=== PATIENT | female | born 1940 | race Caucasian/White ===

== ENCOUNTER 2016-10-08 22:02 | Inpatient (IN) | payer MEDICARE, OTHER ==
--- NOTE | ~2016-10-08 | DS ---
Discharge Summary [facility] [address] [place]. [address] NAME: KARIN ARCEO : 42 STATUS : DIS IN PAT#: [id number] AGE: 75 ADM/REG DATE : 10/08/16 MR#: [id number] REPORT SERV DATE: 10/21/16 DICTATED BY: JABIER CABELLO DATE: 10/20/16 REPORT STATUS : Draft TRANSCRIBED BY: EVIE DATE: 10/20/16 Data Collection from hospitalization DISCHARGE DIAGNOSES: 1. Chest pain. 2. Hypothyroidism. 3. Hypertension. 4. Chronic obstructive pulmonary disease. 5. End-stage renal disease. 6. Atrial fibrillation. 7. Hyperlipidemia. 8. History of left upper extremity AV fistula. 9. Anemia. 10.Past history of Escherichia coli sepsis related to acute cholecystitis. 11.Coronary artery disease. CONSULTATIONS: None. PROCEDURES PERFORMED: Lung ventilation/perfusion scan, 10/09/2016. DISCHARGE MEDICATIONS: Halfprin 81 mg daily, Lipitor 40 mg at bedtime, Tums 2000 mg three times a day, Celexa 10 mg daily, vitamin B12 1000 mcg IM every 30 days, Inspra 25 mg daily, Synthroid 75 mcg before breakfast, Cozaar 100 mg daily, Remeron 15 mg at bedtime, Nitrostat 0.4 mg sublingually as needed, Prilosec 40 mg before breakfast, Zantac 150 mg every evening as needed, Zofran 4 mg every six hours as needed, calcium carbonate 40 mL twice a day, Percocet 5/325 one tablet every four hours as needed. CONDITION AT DISCHARGE: Stable. DISPOSITION: The patient was discharged to [facility] on a renal diet with activities as instructed. HOSPITAL COURSE: This is a 75-year-old female, who dialyzes on Mondays, Wednesdays, and Fridays. She reported to the [facility] with the apparent complaint of chest pain. She was placed as an inpatient in favor of further workup and supportive care. It appears that she underwent an attempted V/Q scan, which was unable to be completed as the patient could not tolerate the entire procedure. She has a history of COPD as well as a cardiac history. She said on the morning of this admission that her chest pain had subsided and that she had no current complaints. She has a left upper extremity fistula with a palpable bruit and thrill. She was admitted to the hospital at this time for further evaluation and treatment. Upon admission, her troponin was 0.08. She had been provided sublingual nitroglycerin in transit and said that she had had no further chest pain since admission. She does have depressed platelets and it was felt that she would need hemodialysis the following day in light of her complaint of chest pain. Initially, we will trend her troponins in three sets and monitor them for escalation. We would plan for her usual hemodialysis the following morning. We would protect the left upper extremity fistula. Repeat echocardiogram was Discharge Summary [place] [id number] [facility] [place]. [address] NAME: KARIN ARCEO : 41 STATUS : DIS IN PAT#: [id number] AGE: 75 ADM/REG DATE : 10/08/16 MR#: [id number] REPORT SERV DATE: 10/21/16 DICTATED BY: JABIER CABELLO DATE: 10/20/16 REPORT STATUS : Draft TRANSCRIBED BY: EVIE DATE: 10/20/16 requested. It was felt that this may be an exacerbation of her COPD more so than active cardiac difficulty. DuoNeb were going to be given as needed and we would titrate her O2 maintaining saturations at 90% or greater as needed. The following day, lungs inhalation/perfusion scan had shown matched left lower lobe defect. There was some atelectasis in the left base on chest x-ray in this location. Other defects could not be compared because the patient could not tolerate completion of the ventilation study. The study was indeterminate for pulmonary embolus because the ventilation procedure could not be completed. On 10/10/2016, hemodialysis therapy was performed. She had no further chest pain. Troponins were negative. Her lungs were clear. There were no significant findings on the echocardiogram. She was evaluated by Physical Therapy. On 10/11/2016, discharge instructions were given. Due to her improved and stable condition, she was discharged to [facility] with the above-stated instructions. Information collected by: Julia Fernandes I submit the above information as my discharge summary. TITI/EVIE Jabier Cabello M.D. / [id number] CC: Honey Ravi M.D. Formerly [facility]
--- NOTE | ~2016-10-08 | HP ---
History And Physical [address] [id number] [place]. [address] NAME: KARIN ARCEO : 42 STATUS : ADM IN [facility]#: [id number] AGE: 75 ADM/REG DATE : 10/08/16 MR#: [id number] REPORT SERV DATE: 10/09/16 DICTATED BY: MANDEEP LEE DATE: 10/09/16 REPORT STATUS : Draft TRANSCRIBED BY: MODL DATE: 10/09/16 DATE OF ADMISSION: 10/08/2016 REASON FOR ADMISSION: End-stage renal disease, complaining of chest pain. HISTORY OF PRESENT ILLNESS: Very pleasant 75-year-old female patient who dialyzes Monday, Monday, and Monday in [place]. She reports to [facility] overnight with an apparent complaint of chest pain. She was placed inpatient in favor of further workup and supportive care. It appears that she underwent an attempted V/Q scan which was unable to be completed as the patient could not tolerate the entire procedure. She is known to have a cardiac history as well as history of COPD and states this morning that her chest pain has subsided and she has no current complaints. She is lying in bed this morning, is easily arousable, awake, alert, and oriented x3. She does have a left upper extremity fistula with a palpable bruit and thrill and is in no acute distress. PAST MEDICAL HISTORY: Positive for end-stage renal disease, Monday, Monday, and Monday dialysis at [place], via left upper extremity fistula. Remainder of her history is positive for paroxysmal atrial fibrillation with no chronic anticoagulation, history of falls, hypertension, coronary artery disease, status post stents, ejection fraction last known around 45%, hyperlipidemia, history of thyroid resection with parathyroidectomy in 11/2014, pelvic fracture with fall in 01/2015, hypothyroidism, anemia, cholelithiasis with gallstone and common bile duct removal by ERCP on 04/23/2015, E coli sepsis related to acute cholecystitis, treated with Rocephin, laparoscopic cholecystectomy in 04/[address] Valverde, coronary artery disease with history of PCI to RCA and LAD in 2000, and anemia. REVIEW OF SYSTEMS: Completed. Please see HPI for pertinent details. SOCIAL HISTORY: The patient states that she lives here locally with her family, particularly, her mother and daughter. Denies EtOH or illicit drugs. No tobacco. No chronic use of anticoagulation as above secondary to falls. ALLERGIES: SHE LISTS ALLERGIES TO LISINOPRIL. ACTIVE HOME MEDICATIONS: Include ASA 81 mg daily, Lipitor 40 mg p.o. at bedtime, Tums 2000 mg p.o. t.i.d., Celexa 10 mg p.o. daily, vitamin B12 at 1000 mcg q.3 days, Inspra 25 mg daily, Levaquin 500 mg p.o. q.48 h., started on 09/28/2016 for 10 days, which should have completed yesterday, Synthroid 75 mcg p.o. daily, Cozaar 100 mg daily, Remeron 15 mg p.o. at bedtime, Nitrostat sublingual 0.4 p.r.n., Prilosec 40 mg p.o. daily, Zofran 4 mg p.o. q.6 hours p.r.n., oxycodone 5/325 one q.4 hours p.r.n., Zantac 150 mg p.o. daily, calcium carbonate 40 mL p.o. b.i.d., phosphate neutra one packet b.i.d. PHYSICAL EXAMINATION: VITAL SIGNS: Blood pressure at 166/53, temperature 98.0, respiratory rate 18, and heart rate is 63 beats per minute and regular. GENERAL: She is a frail-appearing 75-year-old female patient who is awake and History And Physical [address] [address] NAME: KARIN ARCEO : 42 STATUS : ADM IN [facility]#: [id number] AGE: 75 ADM/REG DATE : 10/08/16 MR#: [id number] REPORT SERV DATE: 10/09/16 DICTATED BY: MANDEEP LEE DATE: 10/09/16 REPORT STATUS : Draft TRANSCRIBED BY: EVIE DATE: 10/09/16 alert in bed during evaluation. She is somewhat somnolent, but is arousable and interacts with conversation. HEENT: Normocephalic and atraumatic. Normal ocular movements. No scleral icterus. No conjunctival pallor is appreciated. NECK: Supple. No thyromegaly. No JVD or mass. CHEST: Shows positive S1 and S2. No rubs or gallops. LUNGS: Diminished throughout without rhonchi or wheezes to auscultation. GI: Shows positive bowel sounds in all four quadrants. No appreciable masses or tenderness. : Examination is deferred. EXTREMITIES: Show positive pulses. No clubbing or cyanosis is noted. She does have a left upper extremity brachiocephalic fistula which is in place and has a palpable bruit and thrill. NEUROLOGIC: Appears to be grossly intact. Nonfocal. SKIN: Warm, dry, and intact to visualized surfaces. No rash, lesions, or ecchymosis. PSYCHIATRIC: She appears to be of appropriate mood and affect. LABORATORY DATA: Pertinent laboratories and imaging to this evaluation are as follows: Portable chest x-ray, cardiomegaly with calcified aorta with low lung volumes, focal atelectasis or infiltrate at the left base, and pleural spaces remain clear. V/Q scan was unable to be completed as the patient could not completely participate. Sodium 139, potassium 3.3, chloride 99, CO2 of 33, BUN 31, creatinine 5.02, reflected GFR of 8 mL/minute, glucose of 74, calcium 7.2, phosphorus 2.9, albumin 1.9. CPK 22, CK-MB 1.1, troponin 0.08. B-natriuretic peptide 719.3. Most recent CBC, white blood cell count 5.5, hemoglobin 10.1, hematocrit 32.3, and platelets at 125. IMPRESSION AND PLAN: This is an end-stage renal disease, Monday, Monday, Monday, patient at [facility] in [place] via left upper extremity fistula, now reporting to [facility] with a complaint of chest pain which has now apparently resolved. She was provided in transit sublingual nitroglycerin and states that she has had no further chest pain since admission. She does, however, have depressed platelets and will need hemodialysis tomorrow in light of her complaint of chest pain. Initially, we will trend her troponins three sets q.8 h. and monitor them for escalation. We will plan her usual hemodialysis in the morning. Protect her left upper extremity fistula since she has not had an echocardiogram since, by record here, 2014. We will repeat her echocardiogram tomorrow, ask Physical Therapy to evaluate the patient to see if she may need some assistance of home health or rehabilitation. As of now, this patient will be an observation admit as this appears it may likely be an exacerbation of her COPD, more so than active cardiac difficulty. Also DuoNeb q.6 h. p.r.n. and titrate her O2 maintaining sats at 90% or greater as needed. Further modification of treatment plan may be made based on clinical presentation of the patient, laboratory results, and further consultation with Renal attending. DICTATED BY: Martell Casey NP JR/EVIE History And Physical [address] [place]. [address] NAME: KARIN ARCEO : 42 STATUS : ADM IN PAT#: [id number] AGE: 75 ADM/REG DATE : 10/08/16 MR#: [id number] REPORT SERV DATE: 10/09/16 DICTATED BY: MANDEEP LEE DATE: 10/09/16 REPORT STATUS : Draft TRANSCRIBED BY: EVIE DATE: 10/09/16 Mandeep Lee M.D. / [id number] CC: Honey Ravi M.D.
[~2016-10-08 22:02] MED LIST: ACETSUP650 PR; ASAB PO; B121000P IM; BISR PR; CALCIUM CARBONATE PO; CELEXA10 PO; COZAAR100 MG PO; DIOV160 PO; DIOV80 PO; FLORINEF0.1 MG PO; HALF81 PO; INSPRA25 PO; L40 PO; LEVAQUIN5T PO; LEVOTHYROXIN75 MCG PO; LIPITOR40 PO; MOMUD PO; NEXIUM40 PO; NITROSTAT0.4 MG SL; NORV25 PO; PCET PO; PLAVIX PO; PNEUMOVAX 23 IM; PRIN10 PO; PROTONIX PO; RENVELA2.4 GM PO; RENVELA800 MG PO; ROCALTROL0.5 MCG PO; SB325 PO; SEVE800T PO; SODBICAR10 PO; T PO; TIAZA4 PO; TUMS E-X750 M2 PO; TYLENOL ARTH650 MG PO; ZOFRAN2ML IM; ZOFRAN2ML IV
[2016-10-08] MEDS ORDERED: SYN075 PO (22:03)
[2016-10-08] MEDS ORDERED: REM15 PO (22:03)
[2016-10-08] MEDS ORDERED: COZAAR100 MG PO (22:03)
[2016-10-08] MEDS ORDERED: PRILOSEC40 MG PO (22:04)
[2016-10-08] MEDS ORDERED: POTASSIUM PHOSPHATE PO (22:05)
[2016-10-08] MEDS ORDERED: TUMSROLL PO (22:05)
[2016-10-08] MEDS ORDERED: SODIUM PHOSPHATE PO (22:05)
[2016-10-08] MEDS ORDERED: NITROSTAT0.4 MG SL (22:06)
[2016-10-08] MEDS ORDERED: ZOFRAN ODT4 MG PO (22:06)
[2016-10-08] MEDS ORDERED: ZANTAC 150 PO (22:07)
[2016-10-08] MEDS ORDERED: PCET PO (22:07)
[2016-10-08 22:44] LABS: BASOPHILS 0.2 %; BASOPHILS ABSOLUTE 0.01 10/3/uL (0.0-0.16); EOSINOPHILS 0.9 %; EOSINOPHILS ABSOLUTE 0.05 10/3/uL (0.0-0.53); ER CBC TAT 0 Hrs 05 Mins; HEMATOCRIT 32.3 % (36.0-48.0); HEMOGLOBIN 10.1 g/dL (12.0-16.0); IMMATURE GRANULOCYTES 0.9 %; IMMATURE GRANULOCYTES ABSOLUTE 0.05 10/3/uL (0.0-0.11); LYMPHOCYTES ABSOLUTE 0.93 10/3/uL (0.67-4.30); MEAN CORPUS HGB CONC 31.3 g/dL (32.0-36.0); MEAN CORPUSCULAR VOLUME 99.1 fL (80-100); MONOCYTES ABSOLUTE 0.33 10/3/uL (0.21-1.20); NEUTROPHILS ABSOLUTE 4.09 10/3/uL (2.02-8.40); RBC DISTRIBUTION WIDTH 14.2 % (12.0-16.0); RED CELL COUNT 3.26 10/6/uL (4.0-5.6); WHITE BLOOD CELLS 5.5 10/3/uL (4.5-10.5)
[2016-10-08 22:48] LABS: PLATELET COUNT 125 10/3/uL (150-400)
[2016-10-08 22:49] LABS: MANUAL DIFF NO %
[2016-10-08 22:54] LABS: INTERNATIONAL NORMAL RATI 1.1 UNITS (-); PARTIAL THROMBO TIME 31.4 SEC (22.5-37.2); PROTIME (NOT ORD) 14.4 SEC (12.0-14.5)
[2016-10-08 22:56] LABS: D-DIMER QUANTITATIVE 1.42 ug/mLFEU (< 0.50)
[2016-10-08 23:01] LABS: BUN (BLOOD UREA NITROGEN) 26 MG/DL (6-23); CALCIUM, SERUM 7.1 MG/DL (8.5-10.4); CHLORIDE, SERUM 97 MMOL/L (96-112); CO2 (CARBON DIOXIDE) 35 MMOL/L (24-34); GFR AFRICAN AMERICAN 10 ML/MIN (>=60); GFR NON AFRICAN AMERICAN 9 ML/MIN (>=60); GLUCOSE, SERUM 81 MG/DL (60-99); POTASSIUM, SERUM 3.9 MMOL/L (3.5-5.3); SODIUM, SERUM 136 MMOL/L (135-148)
[2016-10-08 23:02] LABS: CHEST PAIN PROFILE TAT 0 Hrs 23 Mins; TROPONIN I 0.07 NG/ML (<0.05)
[2016-10-09 07:16] LABS: CALCIUM, SERUM 7.2 MG/DL (8.5-10.4); CHLORIDE, SERUM 99 MMOL/L (96-112); CO2 (CARBON DIOXIDE) 33 MMOL/L (24-34); CPK 22 U/L (0-200); CREATININE 5.02 MG/DL (0.55-1.02); GFR AFRICAN AMERICAN 9 ML/MIN (>=60); GFR NON AFRICAN AMERICAN 8 ML/MIN (>=60); GLUCOSE, SERUM 74 MG/DL (60-99); PHOSPHORUS, SERUM 2.9 MG/DL (2.5-4.5); POTASSIUM, SERUM 3.3 MMOL/L (3.5-5.3); SODIUM, SERUM 139 MMOL/L (135-148)
[2016-10-09 07:17] LABS: ALBUMIN 1.9 G/DL (3.5-5.0); BUN (BLOOD UREA NITROGEN) 31 MG/DL (6-23); CK-MB 1.1 NG/ML; TROPONIN I 0.08 NG/ML (<0.05)
[2016-10-09 14:00] LABS: BUN (BLOOD UREA NITROGEN) 32 MG/DL (6-23); CALCIUM, SERUM 7.3 MG/DL (8.5-10.4); CHLORIDE, SERUM 98 MMOL/L (96-112); CK-MB 1.2 NG/ML; CO2 (CARBON DIOXIDE) 36 MMOL/L (24-34); CPK 21 U/L (0-200); CREATININE 5.38 MG/DL (0.55-1.02); GFR AFRICAN AMERICAN 8 ML/MIN (>=60); GFR NON AFRICAN AMERICAN 7 ML/MIN (>=60); GLUCOSE, SERUM 77 MG/DL (60-99); PHOSPHORUS, SERUM 3.7 MG/DL (2.5-4.5); POTASSIUM, SERUM 3.6 MMOL/L (3.5-5.3); SODIUM, SERUM 137 MMOL/L (135-148); TROPONIN I 0.07 NG/ML (<0.05)
[2016-10-09 20:14] LABS: ALBUMIN 2.2 G/DL (3.5-5.0); CALCIUM, SERUM 7.3 MG/DL (8.5-10.4); CHLORIDE, SERUM 97 MMOL/L (96-112); CO2 (CARBON DIOXIDE) 35 MMOL/L (24-34); CPK 27 U/L (0-200); PHOSPHORUS, SERUM 3.7 MG/DL (2.5-4.5); POTASSIUM, SERUM 3.4 MMOL/L (3.5-5.3); SODIUM, SERUM 137 MMOL/L (135-148)
[2016-10-09 20:16] LABS: BUN (BLOOD UREA NITROGEN) 36 MG/DL (6-23); CREATININE 5.88 MG/DL (0.55-1.02); GFR AFRICAN AMERICAN 8 ML/MIN (>=60); GFR NON AFRICAN AMERICAN 7 ML/MIN (>=60); GLUCOSE, SERUM 99 MG/DL (60-99); TROPONIN I 0.05 NG/ML (<0.05)
[2016-10-10 08:45] LABS: BASOPHILS 0.2 %; BASOPHILS ABSOLUTE 0.01 10/3/uL (0.0-0.16); EOSINOPHILS 3.8 %; EOSINOPHILS ABSOLUTE 0.16 10/3/uL (0.0-0.53); HEMATOCRIT 29.9 % (36.0-48.0); HEMOGLOBIN 9.5 g/dL (12.0-16.0); IMMATURE GRANULOCYTES 0.5 %; IMMATURE GRANULOCYTES ABSOLUTE 0.02 10/3/uL (0.0-0.11); LYMPHOCYTES 32.3 %; LYMPHOCYTES ABSOLUTE 1.36 10/3/uL (0.67-4.30); MEAN CORPUS HGB CONC 31.8 g/dL (32.0-36.0); MEAN CORPUSCULAR HEMOGLOB 31.3 pg (26.0-34.0); MEAN CORPUSCULAR VOLUME 98.4 fL (80-100); MONOCYTES 7.6 %; MONOCYTES ABSOLUTE 0.32 10/3/uL (0.21-1.20); NEUTROPHILS 55.6 %; NEUTROPHILS ABSOLUTE 2.34 10/3/uL (2.02-8.40); RBC DISTRIBUTION WIDTH 14.2 % (12.0-16.0); RED CELL COUNT 3.04 10/6/uL (4.0-5.6); WHITE BLOOD CELLS 4.2 10/3/uL (4.5-10.5)
[2016-10-10 08:46] LABS: MANUAL DIFF NO %; PLATELET COUNT 164 10/3/uL (150-400)
[2016-10-10 08:52] LABS: ALBUMIN 1.9 G/DL (3.5-5.0); BUN (BLOOD UREA NITROGEN) 40 MG/DL (6-23); CALCIUM, SERUM 6.6 MG/DL (8.5-10.4); CHLORIDE, SERUM 98 MMOL/L (96-112); CO2 (CARBON DIOXIDE) 32 MMOL/L (24-34); CREATININE 6.58 MG/DL (0.55-1.02); GFR AFRICAN AMERICAN 7 ML/MIN (>=60); GFR NON AFRICAN AMERICAN 6 ML/MIN (>=60); GLUCOSE, SERUM 75 MG/DL (60-99); PHOSPHORUS, SERUM 4.5 MG/DL (2.5-4.5); POTASSIUM, SERUM 3.6 MMOL/L (3.5-5.3); SODIUM, SERUM 138 MMOL/L (135-148)
== END 2016-10-11 17:47 | DRG 682 ==
LOC: ER 22:02 → 2SO 23:55
PROVIDERS: Emergency Medicine; Internal Medicine Nephrology; Registered Nurse
PROC: 5A1D00Z (ICD-10-PCS; principal; 2016-10-10)
DX: I12.0 Hypertensive chronic kidney disease with stage 5 chronic kidney disease or end stage renal disease (principal); N18.6 End stage renal disease; I48.0 Paroxysmal atrial fibrillation; R07.9 Chest pain, unspecified; Z91.81 History of falling; I25.10 Atherosclerotic heart disease of native coronary artery without angina pectoris; E78.5 Hyperlipidemia, unspecified; E03.9 Hypothyroidism, unspecified; J44.9 Chronic obstructive pulmonary disease, unspecified; Z99.2 Dependence on renal dialysis
CPT/HCPCS: 71010; 78582; 80048; 80069; 82550; 82553; 83735; 83880; 84484; 85025; 85379; 85610; 85730; 93005; 93306; 94640; 96374; 97110-GP; 97116-GP; 97161-GP; 99291; A9270-GY; A9540; A9567; G0257; G8978-CK-GP; G8979-CJ-GP; J2405; P9047

== ENCOUNTER 2016-10-26 12:52 | Emergency (ER) | payer MEDICARE, OTHER ==
[2016-10-26 12:22] LABS: BASOPHILS 0.2 %; BASOPHILS ABSOLUTE 0.01 10/3/uL (0.0-0.16); EOSINOPHILS 0.4 %; EOSINOPHILS ABSOLUTE 0.02 10/3/uL (0.0-0.53); IMMATURE GRANULOCYTES 0.2 %; IMMATURE GRANULOCYTES ABSOLUTE 0.01 10/3/uL (0.0-0.11); LYMPHOCYTES 16.6 %; LYMPHOCYTES ABSOLUTE 0.84 10/3/uL (0.67-4.30); MEAN CORPUS HGB CONC 31.2 g/dL (32.0-36.0); MEAN CORPUSCULAR VOLUME 99.2 fL (80-100); MEAN PLATELET VOLUME 9.8 fL (9.2-13.0); MONOCYTES 9.5 %; MONOCYTES ABSOLUTE 0.48 10/3/uL (0.21-1.20); NEUTROPHILS 73.1 %; NEUTROPHILS ABSOLUTE 3.71 10/3/uL (2.02-8.40); RBC DISTRIBUTION WIDTH 15.1 % (12.0-16.0); WHITE BLOOD CELLS 5.1 10/3/uL (4.5-10.5)
[2016-10-26 12:23] LABS: HEMATOCRIT 37.5 % (36.0-48.0); HEMOGLOBIN 11.7 g/dL (12.0-16.0); RED CELL COUNT 3.78 10/6/uL (4.0-5.6)
[2016-10-26 12:24] LABS: MANUAL DIFF NO %; PLATELET COUNT 263 10/3/uL (150-400)
[2016-10-26 12:30] LABS: PARTIAL THROMBO TIME 26.9 SEC (22.5-37.2)
[2016-10-26 12:43] LABS: BUN (BLOOD UREA NITROGEN) 25 MG/DL (6-23); CALCIUM, SERUM 9.3 MG/DL (8.5-10.4); CHEST PAIN PROFILE TAT 0 Hrs 27 Mins; CHLORIDE, SERUM 97 MMOL/L (96-112); CO2 (CARBON DIOXIDE) 38 MMOL/L (24-34); CREATININE 5.29 MG/DL (0.55-1.02); GFR AFRICAN AMERICAN 9 ML/MIN (>=60); GFR NON AFRICAN AMERICAN 7 ML/MIN (>=60); GLUCOSE, SERUM 99 MG/DL (60-99); POTASSIUM, SERUM 3.8 MMOL/L (3.5-5.3); SODIUM, SERUM 139 MMOL/L (135-148)
[~2016-10-26 12:52] MED LIST changes: +POTASSIUM PHOSPHATE PO; +PRILOSEC40 MG PO; +REM15 PO; +SODIUM PHOSPHATE PO; +SYN075 PO; +TUMSROLL PO; +ZANTAC 150 PO; +ZOFRAN ODT4 MG PO
== END 2016-10-26 16:00 | disposition home or self-care (01) ==
LOC: ER 12:52
PROVIDERS: Nurse Practitioner
DX: N18.6 End stage renal disease (principal); R53.81 Other malaise; Z99.2 Dependence on renal dialysis; R79.89 Other specified abnormal findings of blood chemistry; K21.9 Gastro-esophageal reflux disease without esophagitis; D64.9 Anemia, unspecified; Z88.8 Allergy status to other drugs, medicaments and biological substances; Z79.899 Other long term (current) drug therapy; Z79.82 Long term (current) use of aspirin
CPT/HCPCS: 71010; 80048; 83735; 84484; 85025; 85610; 85730; 93005; 99285; A9270-GY

== ENCOUNTER 2016-12-03 22:37 | Emergency (ER) | payer MEDICARE, OTHER ==
[2016-12-03 22:10] LABS: BASOPHILS 0.4 %; BASOPHILS ABSOLUTE 0.02 10/3/uL (0.0-0.16); EOSINOPHILS 2.2 %; ER CBC TAT 0 Hrs 08 Mins; HEMOGLOBIN 9.8 g/dL (12.0-16.0); LYMPHOCYTES 24.9 %; LYMPHOCYTES ABSOLUTE 1.11 10/3/uL (0.67-4.30); MEAN CORPUS HGB CONC 30.7 g/dL (32.0-36.0); MEAN CORPUSCULAR VOLUME 100.9 fL (80-100); MONOCYTES 10.6 %; MONOCYTES ABSOLUTE 0.47 10/3/uL (0.21-1.20); NEUTROPHILS 61.9 %; NEUTROPHILS ABSOLUTE 2.75 10/3/uL (2.02-8.40); RBC DISTRIBUTION WIDTH 16.1 % (12.0-16.0); RED CELL COUNT 3.16 10/6/uL (4.0-5.6); WHITE BLOOD CELLS 4.5 10/3/uL (4.5-10.5)
[2016-12-03 22:12] LABS: HEMATOCRIT 31.9 % (36.0-48.0); MANUAL DIFF NO %; PLATELET COUNT 364 10/3/uL (150-400)
[2016-12-03 22:24] LABS: CALCIUM, SERUM 10.2 MG/DL (8.5-10.4); CHLORIDE, SERUM 95 MMOL/L (96-112); CO2 (CARBON DIOXIDE) 35 MMOL/L (24-34); POTASSIUM, SERUM 3.9 MMOL/L (3.5-5.3); SODIUM, SERUM 134 MMOL/L (135-148)
[2016-12-03 22:25] LABS: BUN (BLOOD UREA NITROGEN) 40 MG/DL (6-23); GFR AFRICAN AMERICAN 13 ML/MIN (>=60); GFR NON AFRICAN AMERICAN 11 ML/MIN (>=60); GLUCOSE, SERUM 70 MG/DL (60-99)
== END 2016-12-04 01:09 | disposition home or self-care (01) ==
LOC: ER 22:37
PROVIDERS: Physician Assistant
DX: R60.0 Localized edema (principal); I13.0 Hypertensive heart and chronic kidney disease with heart failure and stage 1 through stage 4 chronic kidney disease, or unspecified chronic kidney disease; N18.9 Chronic kidney disease, unspecified; I50.9 Heart failure, unspecified; D64.9 Anemia, unspecified; I48.92 Unspecified atrial flutter; Z95.1 Presence of aortocoronary bypass graft; Z88.8 Allergy status to other drugs, medicaments and biological substances; Z79.82 Long term (current) use of aspirin; Z79.899 Other long term (current) drug therapy
CPT/HCPCS: 80048; 85025; 87040; 99284